=== PATIENT | female | born 1960 | race Caucasian/White ===

== ENCOUNTER 2017-08-30 02:19 | Inpatient (IN) | payer SELFPAY ==
[~2017-08-30] VITALS: Ht 167.6 cm; Wt 114.2 kg
[2017-08-30] MEDS ORDERED: SODIUM CHLORIDE 0.9% 1,000 ML IV ONE (02:31)
[2017-08-30] MEDS ORDERED: MORPHINE SULFATE 4 MG/ML, 1ML ONE ×2 (02:51→04:12)
[2017-08-30] MEDS ORDERED: ONDANSETRON 2MG/ML, 2ML ONE (02:52)
[2017-08-30] MEDS: MORPHINE SULFATE 4 MG/ML, 1ML IVPush PRN ×2 (02:53→04:15)
[2017-08-30] MEDS ORDERED: SODIUM CHLORIDE 0.9% 1,000ML IVBOLUS ONE (03:00)
[2017-08-30] MEDS ORDERED: ONDANSETRON 2MG/ML, 2ML IVPush ONE (03:00)
[2017-08-30] MEDS ORDERED: SODIUM CHLORIDE FLUSH 10ML SYR IVF ONE (03:00)
[2017-08-30 03:01] LABS: BASOPHILS # (AUTO) 0.07 x10^3/uL (0-0.1); BASOPHILS % (AUTO) 1 % (0-1); EOSINOPHILS # (AUTO) 0.09 x10^3/uL (0-0.4); EOSINOPHILS % (AUTO) 1 % (1-7); LYMPHOCYTES # (AUTO) 4.42 x10^3/uL (1-3.4); LYMPHOCYTES % (AUTO) 34 % (22-44); MD NO; MEAN CORPUSCULAR HEMOGLOBIN 28.3 pg (27.0-34.8); MEAN CORPUSCULAR HGB CONC 33.4 g/dL (32.4-35.8); MEAN CORPUSCULAR VOLUME 84.7 fL (80-100); MEAN PLATELET VOLUME 8.2 fL (7.4-10.4); MONOCYTES # (AUTO) 0.84 x10^3/uL (0.2-0.8); MONOCYTES % (AUTO) 7 % (2-9); NEUTROPHILS # (AUTO) 7.61 x10^3/uL (1.8-6.8); NEUTROPHILS % (AUTO) 58 % (42-75); PLATELET COUNT 359 x10^3/uL (130-400); RED BLOOD COUNT 4.95 x10^6/uL (3.82-5.3); RED CELL DISTRIBUTION WIDTH 13.3 % (9.6-15.2)
[2017-08-30 03:08] LABS: ANION GAP 11 mmol/L (5-15); CALCIUM 9.1 mg/dL (8.5-10.1); CHLORIDE 106 mmol/L (98-107); CREATININE 0.83 mg/dL (0.55-1.02)
[2017-08-30 03:09] LABS: ALANINE AMINOTRANSFERASE 40 U/L (12-78); ALBUMIN 3.6 g/dL (3.4-5.0)
[2017-08-30 03:11] LABS: ALKALINE PHOSPHATASE 64 U/L (45-117); BILIRUBIN,TOTAL 0.7 mg/dL (0.2-1.0); TOTAL PROTEIN 8.1 g/dL (6.4-8.2)
[2017-08-30] MEDS ORDERED: OMNIPAQUE 350 MG/ML, 100ML BOTTLE ONE (04:02)
[2017-08-30 04:33] LABS: MICROSCOPIC NOT IND
[2017-08-30 04:44] LABS: CULTURE INDICATED? NO
[2017-08-30 04:54] LABS: TROPONIN I < 0.015 ng/mL (0.000-0.045)
[2017-08-30] MEDS ORDERED: OLME1TAB38 PO (05:55)
[2017-08-30] MEDS ORDERED: [UNRECOGNIZED DRUG - CODE] PO (05:55)
[2017-08-30] MEDS ORDERED: MELO15TA24 PO (05:55)
[2017-08-30] MEDS ORDERED: TAPE50TA11 PO (05:55)
[2017-08-30] MEDS ORDERED: ASPI-515 PO (05:55)
[2017-08-30] MEDS ORDERED: hydrALAzine 20 MG/ML, 1ML IVPush PRN (06:30)
[2017-08-30] MEDS ORDERED: BISACODYL 10 MG SUPP PR PRN (06:30)
[2017-08-30] MEDS ORDERED: morphine SULFATE 10 MG/ML, 1ML IVPush PRN (06:30)
[2017-08-30] MEDS ORDERED: ACETAMINOPHEN 325 MG TABLET PO PRN (06:30)
[2017-08-30] MEDS ORDERED: ENALAPRILAT 1.25 MG/ML, 2ML IVPush PRN (06:30)
[2017-08-30] MEDS ORDERED: ONDANSETRON 2MG/ML, 2ML IVPush PRN (06:30)
[2017-08-30 07:00] LABS: FREE T4 (FREE THYROXINE) 1.35 ng/dL (0.76-1.46); THYROID STIMULATING HORMONE 4.51 mIU/L (0.358-3.740)
[2017-08-30] MEDS ORDERED: MAALOX/HYOSCYAMINE/LIDOCAINE 45 ML BTL PO ONE (07:00)
[2017-08-30 07:21] LABS: HEMOGLOBIN A1C 6.3 % (4.2-6.3)
[2017-08-30 07:37] VITALS: BP 122/82
[2017-08-30] MEDS: PANTOPRAZOLE 40 MG IV IVPush SCH ×2 (08:44→18:24)
[2017-08-30] MEDS: SODIUM CHLORIDE 0.9% 1,000 ML IV SCH ×2 (08:44→16:53)
[2017-08-30] MEDS: TAPENTADOL HCL 50 MG HOMEMEDPO SCH ×3 (08:49→20:50)
[2017-08-30] MEDS: TRIBENZOR HOMEMEDPO SCH (08:49)
[2017-08-30] MEDS ORDERED: RABEPRAZOLE SODIUM 20 MG PO SCH (09:00)
[2017-08-30] MEDS ORDERED: LORazepam 2 MG/ML, 1ML IVPush PRN (10:00)
[2017-08-30 12:18] LABS: MICROSCOPIC NOT IND
[2017-08-30 12:22] LABS: CULTURE INDICATED? NO
[2017-08-30] MEDS: OXYcodone IR 5MG TABLET PO PRN ×3 (12:30→22:12)
[2017-08-30 13:50] VITALS: BP 117/64
[2017-08-30 20:00] VITALS: BP 119/63
[2017-08-31 02:00] VITALS: BP 118/80
[2017-08-31 05:22] LABS: BASOPHILS # (AUTO) 0.05 x10^3/uL (0-0.1); BASOPHILS % (AUTO) 1 % (0-1); EOSINOPHILS # (AUTO) 0.26 x10^3/uL (0-0.4); EOSINOPHILS % (AUTO) 4 % (1-7); LYMPHOCYTES # (AUTO) 3.09 x10^3/uL (1-3.4); LYMPHOCYTES % (AUTO) 42 % (22-44); MD NO; MEAN CORPUSCULAR HEMOGLOBIN 28.4 pg (27.0-34.8); MEAN CORPUSCULAR HGB CONC 33.4 g/dL (32.4-35.8); MEAN CORPUSCULAR VOLUME 85.1 fL (80-100); MEAN PLATELET VOLUME 8.2 fL (7.4-10.4); MONOCYTES # (AUTO) 0.55 x10^3/uL (0.2-0.8); MONOCYTES % (AUTO) 7 % (2-9); NEUTROPHILS # (AUTO) 3.45 x10^3/uL (1.8-6.8); NEUTROPHILS % (AUTO) 47 % (42-75); PLATELET COUNT 287 x10^3/uL (130-400); RED BLOOD COUNT 4.19 x10^6/uL (3.82-5.3); RED CELL DISTRIBUTION WIDTH 13.1 % (9.6-15.2)
[2017-08-31 05:32] LABS: ALBUMIN 3.1 g/dL (3.4-5.0); ANION GAP 7 mmol/L (5-15); CHLORIDE 107 mmol/L (98-107)
[2017-08-31 05:36] LABS: ALANINE AMINOTRANSFERASE 50 U/L (12-78); ALKALINE PHOSPHATASE 56 U/L (45-117); BILIRUBIN,TOTAL 0.8 mg/dL (0.2-1.0); CHOL/HDL RATIO 5.7; CHOLESTEROL, TOTAL 204 mg/dL (140-239); CREATININE 0.72 mg/dL (0.55-1.02); HDL CHOL % 18 % (28-40); HDL CHOLESTEROL (DIRECT) 36 mg/dL (40-60); LDL CHOLESTEROL,CALCULATED 137 mg/dL (54-169); LDL/HDL RATIO 3.8 (0.5-3.0); TRIGLYCERIDES 157 mg/dL (50-200); VLDL CHOLESTEROL 31 mg/dL (0-25)
[2017-08-31] MEDS: PANTOPRAZOLE 40 MG IV IVPush SCH ×2 (06:35→17:58)
[2017-08-31] MEDS ORDERED: FLU VACC QS2017-18 (36MOS+) UP/PF 0.5 ML IM-VACC ONE (07:00)
[2017-08-31] MEDS: OXYcodone IR 5MG TABLET PO PRN ×4 (08:12→23:41)
[2017-08-31] MEDS: TAPENTADOL HCL 50 MG HOMEMEDPO SCH ×3 (08:13→21:33)
[2017-08-31] MEDS: TRIBENZOR HOMEMEDPO SCH (08:13)
[2017-08-31 08:45] VITALS: BP 131/73
[2017-08-31 13:45] VITALS: BP 133/63
[2017-08-31] MEDS ORDERED: BISACODYL 10 MG SUPP PR PRN (15:30)
[2017-08-31] MEDS ORDERED: MAALOX/HYOSCYAMINE/LIDOCAINE 45 ML BTL PO ONE (15:30)
[2017-08-31] MEDS ORDERED: POLYETHYLENE GLYCOL 17 GM PACKET PO PRN (15:30)
[2017-08-31] MEDS: D5%-0.9% NACL+KCL 20MEQ 1,000 ML IV SCH (16:08)
[2017-08-31] MEDS: SUCRALFATE 1 GM/10 ML UDC PO SCH ×2 (16:08→21:33)
[2017-08-31] MEDS: POLYETHYLENE GLYCOL 17 GM PACKET PO PRN (16:09)
[2017-08-31 20:00] VITALS: BP 148/73
[2017-08-31] MEDS: ATORVASTATIN 20 MG TABLET PO SCH (21:33)
[2017-08-31] MEDS: SENNA/DOCUSATE TABLET PO SCH (21:33)
[2017-09-01 00:50] VITALS: BP 141/75
[2017-09-01] MEDS: D5%-0.9% NACL+KCL 20MEQ 1,000 ML IV SCH ×2 (02:14→10:00)
[2017-09-01] MEDS: PANTOPRAZOLE 40 MG IV IVPush SCH ×2 (06:34→18:05)
[2017-09-01] MEDS: SUCRALFATE 1 GM/10 ML UDC PO SCH ×4 (06:34→21:43)
[2017-09-01 07:03] VITALS: BP 154/76
[2017-09-01] MEDS: TAPENTADOL HCL 50 MG HOMEMEDPO SCH ×3 (08:37→21:45)
[2017-09-01] MEDS: SENNA/DOCUSATE TABLET PO SCH (08:37)
[2017-09-01] MEDS: TRIBENZOR HOMEMEDPO SCH (08:37)
[2017-09-01] MEDS: OXYcodone IR 5MG TABLET PO PRN ×4 (08:41→21:45)
[2017-09-01] MEDS ORDERED: MAGNESIUM CITRATE 300ML ORAL SOL PO ONE (11:30)
[2017-09-01] MEDS: DOCUSATE 100 MG CAPSULE PO PRN (14:31)
[2017-09-01 14:37] VITALS: BP 118/70
[2017-09-01 19:41] VITALS: BP 159/88
[2017-09-01] MEDS: ATORVASTATIN 20 MG TABLET PO SCH (21:43)
[2017-09-02 01:21] VITALS: BP 153/83
[2017-09-02] MEDS: OXYcodone IR 5MG TABLET PO PRN ×5 (02:02→21:55)
[2017-09-02 05:24] LABS: BASOPHILS # (AUTO) 0.03 x10^3/uL (0-0.1); BASOPHILS % (AUTO) 0 % (0-1); EOSINOPHILS # (AUTO) 0.22 x10^3/uL (0-0.4); EOSINOPHILS % (AUTO) 3 % (1-7); LYMPHOCYTES # (AUTO) 2.73 x10^3/uL (1-3.4); LYMPHOCYTES % (AUTO) 31 % (22-44); MD NO; MEAN CORPUSCULAR HEMOGLOBIN 28.6 pg (27.0-34.8); MEAN CORPUSCULAR HGB CONC 33.6 g/dL (32.4-35.8); MEAN CORPUSCULAR VOLUME 85.3 fL (80-100); MEAN PLATELET VOLUME 7.7 fL (7.4-10.4); MONOCYTES # (AUTO) 0.83 x10^3/uL (0.2-0.8); MONOCYTES % (AUTO) 9 % (2-9); NEUTROPHILS # (AUTO) 4.99 x10^3/uL (1.8-6.8); NEUTROPHILS % (AUTO) 57 % (42-75); PLATELET COUNT 261 x10^3/uL (130-400); RED BLOOD COUNT 3.96 x10^6/uL (3.82-5.3); RED CELL DISTRIBUTION WIDTH 12.6 % (9.6-15.2)
[2017-09-02 05:33] LABS: ANION GAP 5 mmol/L (5-15); CALCIUM 8.2 mg/dL (8.5-10.1); CHLORIDE 101 mmol/L (98-107)
[2017-09-02] MEDS: PANTOPRAZOLE 40 MG IV IVPush SCH ×2 (06:02→17:18)
[2017-09-02] MEDS: SUCRALFATE 1 GM/10 ML UDC PO SCH ×4 (06:02→22:00)
[2017-09-02 07:50] VITALS: BP 150/89
[2017-09-02] MEDS: SENNA/DOCUSATE TABLET PO SCH (08:49)
[2017-09-02] MEDS: TRIBENZOR HOMEMEDPO SCH (08:51)
[2017-09-02] MEDS: TAPENTADOL HCL 50 MG HOMEMEDPO SCH ×3 (08:51→21:57)
[2017-09-02 12:21] VITALS: BP 123/63
[2017-09-02] MEDS ORDERED: MAGNESIUM CITRATE 300ML ORAL SOL PO ONE (16:00)
[2017-09-02 20:08] VITALS: BP 123/71
[2017-09-02] MEDS ORDERED: OMNIPAQUE 350 MG/ML, 100ML BOTTLE ONE (21:00)
[2017-09-02] MEDS: ATORVASTATIN 20 MG TABLET PO SCH (21:56)
[2017-09-02] MEDS: DOCUSATE 100 MG CAPSULE PO PRN (22:02)
[2017-09-03] MEDS: OXYcodone IR 5MG TABLET PO PRN ×5 (02:05→22:33)
[2017-09-03 03:27] VITALS: BP 120/75
[2017-09-03] MEDS: SUCRALFATE 1 GM/10 ML UDC PO SCH ×4 (06:15→21:02)
[2017-09-03] MEDS: PANTOPRAZOLE 40 MG IV IVPush SCH ×2 (06:16→18:27)
[2017-09-03 07:56] VITALS: BP 121/78
[2017-09-03] MEDS: SENNA/DOCUSATE TABLET PO SCH (08:33)
[2017-09-03] MEDS: TAPENTADOL HCL 50 MG HOMEMEDPO SCH ×3 (08:34→21:02)
[2017-09-03] MEDS: TRIBENZOR HOMEMEDPO SCH (08:34)
[2017-09-03] MEDS: POLYETHYLENE GLYCOL 17 GM PACKET PO PRN (10:32)
[2017-09-03] MEDS ORDERED: CEFTRIAXONE 1,000 MG in SODIUM CHLORIDE 0.9% 50 ML IV SCH (13:00)
[2017-09-03] MEDS ORDERED: CEFTRIAXONE PMX 1GM/50ML 50 ML IV SCH (13:00)
[2017-09-03 13:23] VITALS: BP 115/76
[2017-09-03] MEDS ORDERED: METRONIDAZOLE PMX 500MG/100ML 100 ML IV SCH (14:00)
[2017-09-03 15:17] LABS: OCCULT BLOOD NEGATIVE (NEGATIVE)
[2017-09-03 15:18] LABS: STOOL FOR LEUKOCYTES RARE (0-1/HPF) (NEGATIVE)
[2017-09-03 15:20] LABS: CRYPTOSPORIDIUM ANTIGEN Negative (Negative)
[2017-09-03 19:59] VITALS: BP 109/72
[2017-09-03] MEDS: ATORVASTATIN 20 MG TABLET PO SCH (21:02)
[2017-09-04 01:15] VITALS: BP 115/74
[2017-09-04] MEDS: OXYcodone IR 5MG TABLET PO PRN ×2 (02:27→06:28)
[2017-09-04] MEDS: PANTOPRAZOLE 40 MG IV IVPush SCH (06:28)
[2017-09-04] MEDS: SUCRALFATE 1 GM/10 ML UDC PO SCH ×2 (06:28→10:56)
[2017-09-04 08:19] VITALS: BP 113/74
[2017-09-04] MEDS: SENNA/DOCUSATE TABLET PO SCH ×2 (08:52→08:57)
[2017-09-04] MEDS: TRIBENZOR HOMEMEDPO SCH (08:57)
[2017-09-04] MEDS: TAPENTADOL HCL 50 MG HOMEMEDPO SCH ×2 (08:57→10:58)
[2017-09-04] MEDS ORDERED: ACET325T14 PO (12:55)
[2017-09-04] MEDS ORDERED: DOCU-131 PO (12:55)
[2017-09-04] MEDS ORDERED: OMEP-110 PO (12:55)
[2017-09-04] MEDS ORDERED: ATOR20TA9 PO (12:55)
[2017-09-04] MEDS ORDERED: KETO10TA PO (12:55)
[2017-09-04 13:07] VITALS: BP 110/76
[2017-09-04 14:07] VITALS: BP 132/73
== END 2017-09-04 15:00 | disposition home or self-care (01) | DRG 392 ==
LOC: ED 03:25 → EDIP 05:12 → 4NOR 05:16 → DCLOUNGE 09-04 14:10
PROVIDERS: ADMIT Internal Medicine; ATTEND Internal Medicine
DX: K52.9 Noninfective gastroenteritis and colitis, unspecified (principal); E27.8 Other specified disorders of adrenal gland; K76.0 Fatty (change of) liver, not elsewhere classified; K63.89 Other specified diseases of intestine; D35.02 Benign neoplasm of left adrenal gland; D72.829 Elevated white blood cell count, unspecified; I10 Essential (primary) hypertension; K21.9 Gastro-esophageal reflux disease without esophagitis; M16.12 Unilateral primary osteoarthritis, left hip; Z79.82 Long term (current) use of aspirin; Z80.1 Family history of malignant neoplasm of trachea, bronchus and lung; Z87.891 Personal history of nicotine dependence; Z90.710 Acquired absence of both cervix and uterus; Z90.49 Acquired absence of other specified parts of digestive tract
CPT/HCPCS: 36415; 70250; 74176; 74177; 76700; 80048; 80053; 80061; 81003; 82272; 83036; 83690; 83735; 84100; 84439; 84443; 84484; 85025; 87046; 87328; 87329; 87899; 89055; 90686; 96361; 96374; 96375; 96376; J2405; Q9967; C9113; J3480; J7030